=== PATIENT | male | born 1985 | race Hispanic/Latino ===

== ENCOUNTER 2018-06-30 00:09 | Emergency (ER) | payer SELFPAY ==
[2018-06-30 03:43] LABS: ALT (SGPT) 88 U/L (8-55); AST (SGOT) 39 U/L (5-34); Albumin 4.3 g/dL (3.5-5.0); Alkaline Phosphatase 102 U/L (40-150); Anion Gap 14 mmol/L (10-20); BUN (Urea Nitrogen) 22 mg/dL (8.9-20.6); Bilirubin, Total 0.6 mg/dL (0.2-1.2); Calc. Creatinine Clearance 0 mL/min (70-130); Calcium 9.7 mg/dL (7.8-10.44); Carbon Dioxide 23 mmol/L (22-29); Chloride 105 mmol/L (98-107); Estimated GFR-MDRD Greater than 90; Glucose 117 mg/dL (70-105); Potassium 3.3 mmol/L (3.5-5.1); Protein, Total 7.3 g/dL (6.0-8.3); Sodium 139 mmol/L (136-145)
[2018-06-30 03:45] LABS: Band 2 % (5-11); Eosinophils 4 % (0-10); Hemoglobin 14.7 g/dL (14.0-18.0); Lymphocytes 42 % (21-51); MDiff Complete? YES; Mean Corpuscular HGB CONC 34.8 g/dL (32.0-36.0); Mean Corpuscular Hemoglobin 31.4 pg (27.0-31.0); Mean Corpuscular Volume 90.4 fL (78.0-98.0); Mean Platelet Volume 6.5 fL (7.4-10.4); Monocytes 3 % (0-10); Neutrophil 49 % (42-75); Platelet Count 283 thou/uL (130-400); RBC Distribution Width 11.7 % (11.5-14.5); Red Blood Cell (RBC) Count 4.68 mill/uL (4.70-6.10); White Blood Cell (WBC) Count 7.6 thou/uL (4.8-10.8)
--- NOTE | 2018-06-30 07:21 | CT ---
CT OF THE ABDOMEN AND PELVIS WITH IV CONTRAST: Date: 06/30/18 INDICATION: Worsening left-sided rib pain, left lower quadrant abdominal pain. FINDINGS: ABDOMEN: The lung bases are clear. Liver, spleen, pancreas, adrenal glands, and kidneys appear within normal limits. No free fluid or enlarged lymph nodes are evident. There is a normal appendix in the lower quadrant of the abdomen. PELVIS: The bladder, rectum, and perirectal soft tissues are unremarkable. Small and large bowel appear withi n normal limits. No definite acute osseous abnormality is evident. Visualized lower left rib cage reveals no definite displaced fracture. IMPRESSION: No acute abnormality. POS: BH
[2018-06-30] MEDS ORDERED: ISOVUE-370 76%-LOCM 1 ML ONE (09:29)
--- NOTE | 2018-06-30 09:30 | RAD ---
CHEST 2 VIEWS: Date: )06/30/18 INDICATION: Rib pain and chest pain. COMPARISON: None. FINDINGS: Lungs are clear. Heart size is normal. No acute osseous abnormality is evident. IMPRESSION: No acute cardiopulmonary abnormality. POS: BH
== END 2018-06-30 05:15 | disposition home or self-care (01) ==
LOC: ERS 00:09
DX: S20.212A Contusion of left front wall of thorax, initial encounter (principal); R10.12 Left upper quadrant pain; V89.2XXA Person injured in unspecified motor-vehicle accident, traffic, initial encounter
CPT/HCPCS: 36415; 71046; 74177; 80053; 85025

== ENCOUNTER 2019-09-10 15:07 | Emergency (ER) | payer OTHER, SELFPAY ==
[2019-09-11 15:06] LABS: SARS-CoV-2 MS2 Positive; SARS-CoV-2 N Gene Positive; SARS-CoV-2 S Gene Positive; SARS-CoV-2 orf1ab Positive
== END 2019-09-10 15:40 | disposition home or self-care (01) ==
LOC: ERS 15:07
DX: U07.1 COVID-19 (principal)
CPT/HCPCS: 87635; 99283; U0003

== ENCOUNTER 2019-09-15 16:26 | Emergency (ER) | payer OTHER, SELFPAY ==
[2019-09-15] MEDS ORDERED: Dexamethasone 10 MG/ML VIAL ONE (17:02)
[2019-09-15 17:14] LABS: #Eosinphils 0.1 thou/uL (0.0-0.7); #Lymphocytes 2.1 thou/uL (1.20-3.40); #Monocytes 0.5 thou/uL (0.11-0.59); #Neutrophils 4.1 thou/uL (1.40-6.50); %Basophils 0.5 % (0.0-1.0); %Eosinophils 1.2 % (0.0-10.0); %Lymphocytes 30.4 % (21.0-51.0); %Monocytes 6.8 % (0.0-10.0); Hemoglobin 15.7 g/dL (14.0-18.0); Mean Corpuscular HGB CONC 36.3 g/dL (32.0-36.0); Mean Corpuscular Hemoglobin 32.5 pg (27.0-31.0); Mean Corpuscular Volume 89.4 fL (78.0-98.0); Platelet Count 244 thou/uL (130-400); RBC Distribution Width 11.2 % (11.5-14.5); Red Blood Cell (RBC) Count 4.84 mill/uL (4.70-6.10); White Blood Cell (WBC) Count 6.8 thou/uL (4.8-10.8)
[2019-09-15 17:42] LABS: ALT (SGPT) 123 U/L (8-55); AST (SGOT) 47 U/L (5-34); Albumin 4.3 g/dL (3.5-5.0); Alkaline Phosphatase 139 U/L (40-110); Anion Gap 15 mmol/L (10-20); BUN (Urea Nitrogen) 11 mg/dL (8.9-20.6); Bilirubin, Total 0.5 mg/dL (0.2-1.2); Calc. Creatinine Clearance 0 mL/min (70-130); Calcium 9.3 mg/dL (7.8-10.44); Carbon Dioxide 25 mmol/L (22-29); Chloride 102 mmol/L (98-107); Estimated GFR-MDRD Greater than 90; Globulin 3.7 g/dL (2.4-3.5); Glucose 99 mg/dL (70-105); Potassium 3.5 mmol/L (3.5-5.1); Sodium 138 mmol/L (136-145)
--- NOTE | 2019-09-15 17:54 | RAD ---
CHEST ONE VIEW: History: Pain Comparison: None FINDINGS: Normal cardiac silhouette. Pulmonary vessels and hilum are normal. Costophrenic angles are clear. Rig ht lower lobe infiltrate. No pneumothorax or acute osseous abnormality. IMPRESSION: Right lower lobe infiltrate. POS: PPP
== END 2019-09-15 18:49 | disposition home or self-care (01) ==
LOC: ERS 16:26
DX: U07.1 COVID-19 (principal); J12.89 Other viral pneumonia
CPT/HCPCS: 71045; 80053; 84484; 85025; 93005; 96374; J1100